=== PATIENT | female | born 1975 | race Caucasian/White ===

== ENCOUNTER → 2018-10-29 | Outpatient (CLI) | payer BC ==
[~2018-10-29] VITALS: Ht 160 cm; Wt 100.7 kg
[~2018-10-29] MED LIST: ALBU2.5V8 INH; FOLI1TAB16 PO; GABA600T7 PO; LOSA-73 PO; METH2.5T PO; SIMV10TA3 PO; SINCALIDE 2 MCG in IV NORMAL SALINE 50ML 30 ML IV ONE; TRAM50TA PO
--- NOTE | 2018-10-29 12:18 | RAD ---
Examination: NM HEPATOBILIARY SCAN W PHARM History: Epigastric pain, right upper quadrant pain for one month Comparison/Correlation: CT abdomen and pelvis without contrast. 05/02/2013 Findings: 5.5 mCi technetium 99m Choletec was intravenously administered for purposes of hepatobiliary scintigraphy. Uptake of radiotracer by liver is visualized. There is a region of relatively more intense uptake involving the left hepatic lobe lateral segment which persists throughout the exam. Radiotracer is present within small bowel at 25 minutes. The gallbladder is visualized at 15 minutes. After 60 minutes, 2 mcg sincalide was administered intravenously. Gallbladder ejection fraction of 46 percent is noted by 30 minutes. No biliary dilatation. Impression: No evidence of acute or chronic cholecystitis. Focal persistent uptake involving the left hepatic lobe lateral segment region. Underlying hepatic mass such as focal nodular hyperplasia is questioned. Alternatively, this may represent reflux of radiotracer from small bowel into the fundus of the stomach. Radiotracer however is not evident more distally in the stomach on images provided. No corresponding mass lesion identified on 05/02/2013 CT abdomen and pelvis without contrast. Consider further evaluation with contrast-enhanced CT of the liver or MRI exam of the liver without and with contrast exam for further evaluation. Electronically signed by: Elieser Romero MD (10/29/2018 12:15 PM) [facility]
== END | disposition home or self-care (01) ==
LOC: NM 07:57
PROVIDERS: ATTEND Internal Medicine Gastroenterology
DX: R10.13 Epigastric pain (principal); R10.11 Right upper quadrant pain
CPT/HCPCS: 78227; A9537; J2805

== ENCOUNTER → 2018-11-07 | Outpatient (CLI) | payer BC ==
[~2018-11-07] MED LIST changes: -SINCALIDE 2 MCG in IV NORMAL SALINE 50ML 30 ML IV ONE
--- NOTE | 2018-11-08 08:44 | KCIC ---
EXAM: Supine AP view of the abdomen DATE: 11/07/2018 12:00 AM INDICATION: URINARY CALCULUS, LEFT FLANK PAIN COMPARISON: No Prior FINDINGS: No abnormal small or large bowel dilatation. Moderate colonic stool content. No abnormal soft tissue mass effect. Numerous calcifications project over the renal fossa bilaterally likely renal calculi. If there is concern for ureteral or obstructing calculi, CT is more sensitive. Evaluation for free intraperitoneal gas is limited on this supine exam. IMPRESSION: 1. No evidence for bowel obstruction. 2. Rounded calcifications projecting over the renal fossa bilaterally, likely calculi. If there is concern for ureteral or obstructing calculi, CT is more sensitive. Electronically signed by: Immanuel Hassan MD (11/08/2018 8:42 AM) [facility]
== END | disposition home or self-care (01) ==
LOC: KCIC 15:11
PROVIDERS: ATTEND Urology
DX: R10.9 Unspecified abdominal pain (principal); Z87.442 Personal history of urinary calculi
CPT/HCPCS: 74018